=== PATIENT | female | born 1945 | race Caucasian/White ===

== ENCOUNTER → 2016-10-27 | Outpatient (CLI) | payer OTHER ==
[~2016-10-27] MED LIST: AMLODIPINE BESY10 MG PO; AMLODIPINE BESYL5 MG PO; CALCIUM + D 6001 TA1 PO; CALCIUM500 MG PO; CELEXA PO; CELEXA20 MG PO; CIPRO PO; CLINDAMYCIN HC300 MG PO; CYMBALTA30 MG PO; DILTIAZEM 24HR360 M1 PO; DILTIAZEM ER180 M1 PO; FEMARA2.5 MG PO; FIORICET1 TAB PO; FLEXERIL PO; HYDROCODON-ACE1 EAC1 PO; HYDROCODON-ACE1 EAC7 PO; HYDROCODONE-APA1 T41 PO; LEFLUNOMIDE10 MG PO; LORAZEPAM1 MG PO; MACROBID100 MG PO; MOBIC15 MG PO; NAPROXEN PO; OMEPRAZOLE20 M1 PO; OXYCODONE-ACET1 EACH PO; PAIN RELIEF650 MG PO; PLAQUENIL200 MG PO; PLAVIX PO; SIMVASTATIN40 MG PO; SPIRIVA18 MCG INH; TESSALON200 MG PO; VITAMIN D-32000 UNIT PO; VITAMIN D1000 UNI1 PO; VITAMIN D400 UNI1; VOLTAREN75 MG PO; ZOCOR20 MG PO; ZOFRAN ODT4 MG PO; ZOFRANODT PO
--- NOTE | ~2016-10-27 | MY9 ---
[facility] A Service of [facility] RADIOLOGY TEXT RESULTS PATIENT: SABINE NEWTON LOCATION: [facility] : 43 UNIT #: [id number] AGE: [address]: Faraz Taveras MD SEX: F ORDER DR: [id number] [facility] [address] [place], [place] [address] [id number] O MR#: [id number] Acc #: [id number] NAME: SABINE NEWTON. : 1945 SEX: F STUDY DATE/TIME: 10/27/2016 11:37 UNIT: [facility] ROOM: STUDY DESCRIPTION: MY Mammogram Screen Uni Dig Lt Attending Physician: Faraz Taveras M.D. Referring Physician: Faraz Taveras M.D. Ordering Physician: Faraz Taveras M.D. Primary Care Physician: Teddy Fletcher D.O. MEDICAL IMAGING REPORT This report is preliminary unless electronic signature is present EXAM Unilateral left digital screening mammogram, 10/27/2016 HISTORY 71-year-old woman status post right mastectomy. Left breast augmentation. 40-pound weight loss indicated. Annual screen. COMPARISON Mammograms date to 02/11/2006, with most recent 08/05/2015. FINDINGS Digital imaging of the left breast was completed utilizing conventional projections and standard Betty views. Review includes FDA-approved CAD device. Subpectoral saline implant with encapsulation is stable. Breast parenchyma is fatty replaced and stable. There is no interval occurring breast mass. There are no suspicious microcalcifications and no suspicious architectural deformity. IMPRESSION Negative unilateral left mammogram. Stable subpectoral encapsulated saline implant. Status post right mastectomy. Annual screening recommended. Patients over the age of 40 are entered into a reminder system with target due date for the next mammogram. A result letter will also be sent to the patient. BIRADS: 1 Negative Dictated by... Shahid Fishman M.D. [facility] A Service of [facility] RADIOLOGY TEXT RESULTS PATIENT: SABINE NEWTON LOCATION: [facility] : 43 UNIT #: [id number] AGE: [address]: Faraz Taveras MD SEX: F ORDER DR: THIS IS AN ELECTRONICALLY VERIFIED REPORT Shahid Fishman M.D. at 10/28/2016 8:06 AM FAWN/karen TD: 10/27/2016 17:22 JOB #: [id number] MEDICAL IMAGING REPORT Page 1 of 1 COPY
== END | disposition home or self-care (01) ==
LOC: CWCC 11:13
DX: Z12.31 Encounter for screening mammogram for malignant neoplasm of breast (principal); Z85.3 Personal history of malignant neoplasm of breast; Z90.11 Acquired absence of right breast and nipple; Z98.82 Breast implant status
CPT/HCPCS: G0202